=== PATIENT | female | born 1970 | race Caucasian/White ===

== ENCOUNTER 2020-08-10 12:28 | Outpatient (CLI) | payer OTHER ==
--- NOTE | 2020-08-10 12:52 | RAD ---
2 views right wrist: 08/10/2020 COMPARISON: None HISTORY: Disability examination FINDINGS: There is an old corticated fracture at the tip of the ulnar styloid. There is moderate radi ocarpal joint space narrowing. No widening of the scapholunate interval. No acute fracture or dislocation. IMPRESSION: No acute osseous abnormality.
--- NOTE | 2020-08-10 12:54 | RAD ---
Lumbar spine 2 views: 08/10/2020 COMPARISON: 03/25/2019 HISTORY: Disability examination FINDINGS: Stable cholecystectomy clips. Lumbar pedicles are intact on the frontal exam. On the basis of 5 lumbar type vertebral bodies, there is stable L2-3 retrolisthesis measuring approximately 7-8 mm and stable L3-4 retrolisthesis measuring 4-5 mm. Stable multilevel lower lumbar spine facet hypertrophy. No acute fracture. Stable L1-2 disc space narrowing and degenerative endplate change. IMPRESSION: Stable lumbar spine degenerative change.
--- NOTE | 2020-08-10 12:56 | RAD ---
2 views chest: 08/10/2020 COMPARISON: 10/08/2014 HISTORY: Disability examination FINDINGS: There are diffuse increased linear interstitial densities with pulmonary hyperinflation, ri ght greater than left, similar when compared to the prior examination. No pneumothorax or pleural fluid is seen and there is no focal consolidation or alveolar edema. IMPRESSION: Stable interstitial disease with pulmonary hyperinflation suggesting air trapping. Recomm end dedicated chest CT for further assessment.
== END 2020-08-10 12:29 | disposition home or self-care (01) ==
LOC: BICRAD 12:28
PROVIDERS: ATTEND Internal Medicine
DX: Z02.71 Encounter for disability determination (principal); J84.9 Interstitial pulmonary disease, unspecified; R91.8 Other nonspecific abnormal finding of lung field; M47.816 Spondylosis without myelopathy or radiculopathy, lumbar region
CPT/HCPCS: 71046; 72100